=== PATIENT | male | born 1965 | race Hispanic/Latino ===

== ENCOUNTER 2021-05-01 17:03 | Emergency (ER) | payer BC ==
[~2021-05-01] VITALS: Ht 162.6 cm; Wt 99.8 kg
[2021-05-01] MEDS ORDERED: LIDOCAINE HCL 1% 10 ML VIAL MISC SCH (17:32)
[2021-05-01] MEDS ORDERED: LIDOCAINE HCL 1% 20 ML VIAL MISC SCH (18:00)
[2021-05-01] MEDS ORDERED: NEOMY SULF/BACITRA/POLYMYXIN B 1 EACH PACKET TP ONE (18:25)
[2021-05-01] MEDS ORDERED: NEOM30OI18 TP (18:49)
[2021-05-01] MEDS ORDERED: IBUP-2077 PO (18:49)
[2021-05-01 18:52] VITALS: BP 151/85
[2021-05-01] MEDS ORDERED: IBUPROFEN 800 MG TAB PO ONE (19:00)
== END 2021-05-01 19:05 | disposition home or self-care (01) ==
LOC: EDH 17:03 → EDBD 17:03 → EDH 19:05
DX: S61.213A Laceration without foreign body of left middle finger without damage to nail, initial encounter (principal); E11.9 Type 2 diabetes mellitus without complications; Z79.1 Long term (current) use of non-steroidal anti-inflammatories (NSAID); W26.0XXA Contact with knife, initial encounter; Y93.G3 Activity, cooking and baking; Y92.090 Kitchen in other non-institutional residence as the place of occurrence of the external cause; Y99.8 Other external cause status
CPT/HCPCS: 12001; 99282; J3490

== ENCOUNTER 2021-05-08 13:08 | Emergency (ER) | payer BC ==
[~2021-05-08] VITALS: Ht 165.1 cm; Wt 86.2 kg
[~2021-05-08 13:08] MED LIST: IBUP-2077 PO; NEOM30OI18 TP
[2021-05-08 13:19] VITALS: BP 151/94
== END 2021-05-08 13:56 | disposition home or self-care (01) ==
LOC: EDH 13:08
DX: S61.215D Laceration without foreign body of left ring finger without damage to nail, subsequent encounter (principal); E11.9 Type 2 diabetes mellitus without complications; Z79.1 Long term (current) use of non-steroidal anti-inflammatories (NSAID); X58.XXXD Exposure to other specified factors, subsequent encounter
CPT/HCPCS: 99281

== ENCOUNTER → 2024-07-15 | Outpatient (CLI) | payer BC ==
--- NOTE | 2024-07-15 11:35 | HMCIMG ---
ULTRASOUND ABDOMEN COMPLETE INDICATION: Abdominal Pain COMPARISON: None. FINDINGS: The liver is normal in size and increased in echogenicity; no focal lesion demonstrated. Main portal vein is patent, and normal direction of vascular flow demonstrated. Liver length is measured at 16.0 cm. The common bile duct caliber measures 4.0 mm. 0.5 cm hypoechoic lesion demonstrated along the dependent gallbladder wall without any associated pericholecystic fluid. No sonographic Foote's sign elicited by the ultrasound plating machine operator. Wall thickness measures 2.0 mm. The spleen is normal in size and echotexture. The spleen measures 11.3 cm. Visible portions of the pancreas appear unremarkable. The right kidney measures 10.9 x 5.4 x 4.9 cm,and is normal in echogenicity, without evidence for hydronephrosis or shadowing stones. 1.8 cm simple right renal cyst. The left kidney measures 11.2 x 2.8 x 2.9 cm,and is normal in echogenicity, without evidence for hydronephrosis or shadowing stones. Visible portions of the abdominal aorta are within normal limits. Visible portions of the inferior vena cava are within normal limits. No free fluid demonstrated. IMPRESSION: 0.5 cm gallbladder "sludgeball" favored over adherent noncalcific gallbladder stone or gallbladder polyp, but no evidence for cholecystitis. Findings suggesting mild hepatic steatosis.
== END | disposition home or self-care (01) ==
LOC: RAH 07-14 09:32
PROVIDERS: ATTEND Nurse Practitioner Family
DX: N28.1 Cyst of kidney, acquired (principal); K82.8 Other specified diseases of gallbladder; R22.2 Localized swelling, mass and lump, trunk
CPT/HCPCS: 76700